=== PATIENT | male | born 1935 | race Caucasian/White ===

== ENCOUNTER 2023-09-05 23:20 | Inpatient (IN) | payer MEDICARE, SELFPAY ==
[2023-09-05] VITALS (7 sets, daily range): BP systolic 73–121; BP diastolic 34–59
--- NOTE | 2023-09-05 18:51 | ED.GENMED ---
History of Present Illness
General
Chief Complaint: Urinary Symptoms
Source: patient
Exam Limitations: none
Time Seen by Provider: 09/05/23 18:20
Travel History
Have you had any contact with someone who has COVID-19?: No
Do you have any symptoms of coronavirus? Fever > 100 degrees, chills, cough, shortness of breath, sore throat, loss of taste or smell, muscle aches, or headache?: No
History of Present Illness
History of Present Illness:
This is a 87 year old male that comes in with c/o not urinating. States that he has not urinated since yesterday. States that he called the Robot Technician and was told to come to the ER. States that he is on a fluid restriction of 48-58ml daily but he
has not gotten this today. States that he also had massive diarrhea today with chills. Denies any fever, chest pain, SOB, abd pain, nausea, vomiting, headache, dizziness, urinary burning.
Past History
Past History
ED Past Medical History: Arrthythmia (Atrial fib), CAD, Cancer (Prostate CA, Skin CA), CHF, HTN, Hypercholesterolemia, NIDDM, DC and Other (Subdural hematoma, Sleep apnea uses CPAP, Hiatal hernia, Tinnitus. back pain, )
ED Past Surgical History: Cardiac (pacemaker/defib, Stents, Ablation, ), Cholecystectomy, Orthopedic (Laminectomy, Bilateral knee replacements, Right shoulder replacement) and Other (cataracts )
Social History
Tobacco: Non-smoker
Alcohol: Occasional
Drug: None
Personal: Single
Living: alone
Employment: Retired
Family History
Family History: Other
Review of Systems
Review of Systems
All Other Systems: ROS reviewed and negative except as documented in HPI and ROS
Constitutional: Reports chills; Denies fever
EENT: Reports no symptoms
Respiratory: Reports no symptoms; Denies cough or trouble breathing
Cardiac: Reports no symptoms; Denies chest pain
ABD/GI: Reports diarrhea; Denies abdominal pain, nausea or vomiting
: Reports difficulty voiding
Musculoskeletal: Reports no symptoms
Skin: Reports no symptoms
Neurological: Reports no symptoms; Denies dizzy or headache
Psychiatric: Reports no symptoms
Phy Exam
General Physical Exam
General Presentation: no apparent distress
General age: appears stated age
General Skin: warm and dry
General Habitus: elderly
General Mental: alert
General Hydration: appears well hydrated
ENT Exam
ENT Exam: TM's normal, pharynx normal and neck supple
Eye Exam
Eye Exam: EOMI
Cardiovascular Exam
Cardiovascular Exam: regular rate/rhythm and normal peripheral pulses
Pulmonary Exam
Pulmonary Exam: lungs clear, no respiratory distress, no rales, chest non tender, no crackles, no rhonchi, no wheezing and no cough
Gastrointestinal Exam
Gastrointestinal Exam: normal bowel sounds, non tender, soft, no organomegaly, no pulsatile mass and non distended
Musculoskeletal Exam
Musculoskeletal Exam: full ROM and edema (+2 pitting edema of the lower legs)
Skin Exam
Skin Exam: normal color, warm/dry, no rash and no petechia
Psychiatric Exam
Psychiatric Exam: normal mood/affect
Course
Orders/Labs/Results
Orders:
Orders
09/05/23 18:51
0.9% Sodium Chloride 250 ml [Nss] 250 ml IV BOLUS
09/05/23 19:00
Complete Blood Count/With Diff Urgent
Comprehensive Metabolic Panel Urgent
NT-proBNP Urgent
Troponin I Urgent
09/05/23 19:27
Straight cath- Treatment ONCE
09/05/23 19:36
Urine Culture Urgent
GENO Source: U
Specimen Description:
Obtained by: Straight Cath
Date Specimen was Collected: 09/05/23
Time Specimen was Collected: 18:53
09/05/23 21:38
0.9% Sodium Chloride 250 ml [Nss] 250 ml IV BOLUS
CR Chest - 2 Views Urgent
Comment:
Reason For Exam: Elevaed Pro-BNP lower leg edema
09/05/23 22:23
Urinalysis Reflex To Culture Urgent
Date Specimen was Collected: 09/05/23
Time Specimen was Collected: 22:22
Urine Microscopic Reflex Cult Urgent
Urine Culture Urgent
GENO Source: U
Specimen Description:
Date Specimen was Collected: 09/05/23
Time Specimen was Collected: 22:22
Abnormal Lab Results
09/05/23 09/05/23
19:00 22:23
WBC 16.8 H 10^3/uL
(4.8-10.8)
RBC 4.06 L 10^6/uL
(4.70-6.10)
Hgb 12.7 L g/dL
(13.0-18.0)
Hct 36.0 L %
(39.0-52.0)
MCH 31.3 H pg
(27.0-31.0)
Abs Immat Gran (auto) 0.1 H 10^3/uL
(0-0.05)
Absolute Neuts (auto) 15.3 H 10^3/uL
(1.4-6.5)
Absolute Lymphs (auto) 0.5 L 10^3/uL
(1.2-3.4)
Absolute Monos (auto) 0.8 H 10^3/uL
(0.1-0.6)
Neutrophils % 91.4 H %
(42.2-75.2)
Lymphocytes % 3.2 L %
(20.5-51.1)
Sodium 131 L mmol/L
(135-145)
BUN 26 H mg/dl
(9-20)
Creatinine 2.3 H mg/dL
(0.7-1.3)
Glucose 193 H mg/dl
(70-99)
Total Bilirubin 1.7 H mg/dl
(0.2-1.3)
Total Protein 5.9 L g/dl
(6.3-8.2)
Albumin 3.3 L g/dl
(3.5-5.0)
Urine Ketones 1+ A
(Negative)
Ur Occult Blood Reflex 4+ A
(Negative)
Urine Nitrite (Reflex) Positive A
(Negative)
Urine Bilirubin 2+ A
(Negative)
Urine Urobilinogen 2+ A
(Neg - 1+)
Leukocyte Esterase Rfl 1+ A
(Negative)
Urine RBC 11-15 A /HPF
(0-2)
Urine Bacteria (Reflex) Many A
(Negative)
Urine Albumin (Reflex) 1+ A
(Neg - Trace)
09/05/23 19:00
09/05/23 19:00
Leukocytosis, H/H slightly low. Sodium slightly low. chronic renal insufficiency, Glucose nonfasting. Total hermilo elevated, Total protein slightly low. Albumin low. Troponin 0.024, Pro-BNP 2340
Vital Signs
Initial and Last Documented VS:
Initial Vital Signs
Temp Pulse Resp BP Pulse Ox
98.9 F 87 16 83/34 98
09/05/23 18:09 09/05/23 18:09 09/05/23 18:09 09/05/23 18:09 09/05/23 18:09
Last Documented Vital Signs
Temp Pulse Resp BP Pulse Ox
98.9 F 75 16 94/52 98
09/05/23 18:09 09/05/23 21:45 09/05/23 21:45 09/05/23 21:00 09/05/23 21:30
MDM/Problems Addressed
Differential Diagnosis Includes:
UTi, Dehydration. renal failure
MDM/Problems Addressed:
This is a 87 year old male that comes in with c/o no urine output since yesterday. States that he is on a fluid restriction and he also had diarrhea today. states that he is behind today in his intake.
Will check labs. IV fluids and get Urine
Nursing was only able to get 5ml of urine when patient was straight cathed so labs was only able to do culture. Patient was given 250ml of NSS and will give a second 250ml and have patient drink some water. Will get chest x-ray. Will get Repeat
urine and if urine shows infection will treat.
Back into see patient. Explained that he has a UTI and that he is in renal failure. Will admit and give IV antibiotics. Hospitalist notified.
Message from radiologist forward to Dr. Jj.
Chronic conditions affecting care:
CHF
Acute Exacerbation and/or Progression of Chronic Illness:
NA
*Radiology
Radiology exam reviewed: radiology read reviewed (Chest-There is a 3cm nodulr parenchymal opacity in the right upper lobe overlying the right first rib anteriorly. This lesion may be inflammatory or neoplastic and CT of the chest would be useful for
further evaluation. )
*Pulse Oximetry
Patient hypoxic: no
*EKG
Interpreted by ED Provider?: NA
Rate: EKG- N/A
*Project Designer Interpretation
Rate: Project Designer- N/A
*Critical Care Note
Total Time (30-74mins, 75-104mins- exclusive of procedures): Not Applicable
ED Attending Note
-
Portions of this chart may have been created with voice recognition software.� Occasional wrong word or��sound alike� substitutions may have occurred due to the inherent limitations of voice recognition software.
Discharge Plan
Departure
Patient Disposition: Admit
Date of Disposition: 09/05/23
Time of Disposition: 23:20
Admit to: Med/Surg
Presentation/result/management discussed w/ accepting MD/DO: Hospitalist
Condition: Good
Covid-19: Not Applicable
Discharge Problem:
Acute UTI (urinary tract infection), Acute renal failure
Prescriptions:
No Action
aspirin 81 MG tablet,delayed release (DR/EC)
81 mg PO HS
atorvastatin 80 MG tablet
80 mg PO HS
tamsulosin 0.4 MG capsule
0.4 mg PO QPM
lisinopril 2.5 MG tablet
2.5 mg PO DAILY
tadalafil [Cialis] 5 MG tablet
5 mg PO HS
amiodarone [Pacerone] 200 MG tablet
200 mg PO DAILY
cholecalciferol (vitamin D3) 25 mcg (1,000 unit) Tablet
1,000 unit PO DAILY
Eliquis 5 mg Tablet
5 mg PO BID Qty: 60 0RF
furosemide 80 MG tablet
80 mg PO DAILY Qty: 30 0RF
carvedilol 25 mg Tablet
25 mg PO BIDWMEAL
guaifenesin 100 mg/5 mL Liquid
200 mg PO Q4H PRN (Reason: cough)
mexiletine 150 mg Capsule
150 mg PO BIDWMEAL
lidocaine [Lidoderm] 5 % Adhesive Patch,Medicated
1 patch TOPICAL DAILY
oxycodone 5 mg Tablet
5 mg PO Q4H PRN (Reason: pain)
acetaminophen 325 mg Tablet
650 mg PO Q6H PRN (Reason: pain)
azelastine 137 mcg (0.1 %) Aerosol,[place]
1 spray INTRANASAL BID
Referrals:
Chris Weller DO [Family Provider] -
Interventions
Interventions:
*Risk Screen - Suicide Last Done: 09/05/23 18:09
*General Assessment Last Done: 09/05/23 18:09
*Neglect/Abuse Screening Last Done: 09/05/23 18:09
*ED COVID-19 Vaccine History Last Done: 09/05/23 18:09
ED-Male Genitourinary Assessment Last Done: 09/05/23 19:07
Discharge Date and Time
Print Language: MACEDONIAN
[2023-09-05] MEDS: NSS 250 IV ×2 (19:03→21:46)
[2023-09-05 19:06] LABS: % Basophils 0.4 % (0-2); % Immature Granulocytes 0.5 % (0-0.5); % Lymphocytes 3.2 % (20.5-51.1); % Monocytes 4.5 % (1.7-9.3); % Neutrophils 91.4 % (42.2-75.2); Absolute Basophils 0.1 10^3/uL (0-0.2); Absolute Immature Granulocytes 0.1 10^3/uL (0-0.05); Absolute Lymphocytes 0.5 10^3/uL (1.2-3.4); Absolute Monocytes 0.8 10^3/uL (0.1-0.6); Absolute Neutrophils 15.3 10^3/uL (1.4-6.5); Hemoglobin 12.7 g/dL (13.0-18.0); Mean Corp Hgb Conc. 35.3 g/dL (33.0-37.0); Mean Corpuscular Hgb 31.3 pg (27.0-31.0); Mean Corpuscular Volume 88.7 fL (80.0-94.0); Mean Platelet Volume 9.9 fL (7.4-10.4); Nucleated Red Blood Cells % 0 % (-); Platelet Count 151 10^3/uL (130-400); Red Blood Cell Count 4.06 10^6/uL (4.70-6.10); Red Cell Dist. Width 13.8 % (11.5-14.5); White Blood Cell Count 16.8 10^3/uL (4.8-10.8)
[2023-09-05 19:25] LABS: ALT (SGPT) 16 U/L (0-50); AST (SGOT) 26 U/L (17-59); Albumin 3.3 g/dl (3.5-5.0); Alkaline Phosphatase 89 U/L (38-126); Blood Urea Nitrogen 26 mg/dl (9-20); Calcium 9.7 mg/dl (8.4-10.2); Carbon Dioxide 22 mmol/L (22-30); Chloride 99 mmol/L (98-107); Glucose 193 mg/dl (70-99); Potassium 3.6 mmol/L (3.5-5.1); Sodium 131 mmol/L (135-145); Total Bilirubin 1.7 mg/dl (0.2-1.3); Total Protein 5.9 g/dl (6.3-8.2); eGFR 27.15
[2023-09-05 19:34] LABS: Troponin I 0.024 ng/ml
[2023-09-05 20:33] LABS: NT-proBNP 2340 pg/ml
[2023-09-05 22:31] LABS: Urine Albumin 1+ (Neg - Trace); Urine Bilirubin 2+ (Negative); Urine Character Slightly Cloudy (Clear); Urine Color Yellow; Urine Glucose Negative (Negative); Urine Ketone 1+ (Negative); Urine Leukocyte 1+ (Negative); Urine Nitrite Positive (Negative); Urine Occult Blood 4+ (Negative); Urine Specific Gravity 1.025 (<1.030); Urine Urobilinogen 2+ (Neg - 1+)
[2023-09-05 22:52] LABS: Urine Bacteria Many (Negative)
[2023-09-05] MEDS: ROCEPHIN 1000 MG IV (23:31)
--- NOTE | 2023-09-05 23:44 | HPS.HSE ---
Family Physician
-
Family Physician: Chris Weller
Chief Complaint
-
inability to urinate
History of Present Illness
87-year-old male past medical history of ventricular tachycardia status post ablation, persistent atrial fibrillation, coronary artery disease status post stents, HFrEF with AICD, CKD 3, hypertension, hyperlipidemia, BPH, presenting with lack of
urination. He has not urinated since yesterday. He called his funds transfer clerk and was told to come to the emergency room. He denies any history of kidney stones, or urinary tract obstruction from any cause.
He had an episode of diarrhea this morning which is since resolved. He denies any abdominal pain but his abdomen is distended and he has some mild discomfort. Denies any nausea or vomiting. Denies any fevers or chills.
He denies any chest pain or shortness of breath. He has chronic lower extremity edema which was actually improved compared to baseline before coming in and now a little worse but still comparable to baseline. He denies any weight gain or weight
loss.
He does not smoke or drink alcohol.
Medical History
Past Medical History
Past Medical History: Reports Other ( ventricular tachycardia status post ablation, persistent atrial fibrillation, coronary artery disease status post stents, HFrEF with AICD, CKD 3, hypertension, hyperlipidemia, BPH, )
Past Surgical History: Reports Other ( Cardiac (pacemaker/defib, Stents, Ablation, ), Cholecystectomy, Orthopedic (Laminectomy, Bilateral knee replacements, Right shoulder replacement) and Other (cataracts ))
Social History
Tobacco: Non-smoker
Alcohol: None
Drug: None
Family History
Family History: Not pertinent
Allergies / Home Medications
Allergies reflects when Allergies were last updated in [employer].
Home Medications with original date entered in [employer]
Allergy/Medication List:
Allergies
Allergy/AdvReac Type Severity Reaction Status Date / Time
iodine [Iodine] Allergy see comment Verified 10/24/22 13:06
Home Medications
atorvastatin 80 mg tablet 80 mg PO HS High cholesterol 04/22/14
tamsulosin 0.4 mg capsule 0.4 mg PO QPM Urinary issue 04/22/14
aspirin 81 mg tablet,delayed release 81 mg PO HS Blood clot prevention/tx 05/31/14
lisinopril 2.5 mg tablet 2.5 mg PO DAILY Blood pressure 08/31/20
tadalafil 5 mg tablet (Cialis) 5 mg PO HS Urinary issue 08/31/20
amiodarone 200 mg tablet (Pacerone) 200 mg PO DAILY Arrhythmia 11/02/20
cholecalciferol (vitamin D3) 25 mcg (1,000 unit) tablet 1,000 unit PO DAILY Supplement 03/28/22
apixaban 5 mg tablet (Eliquis) 5 mg PO BID #60 tabs 07/28/22
furosemide 80 mg tablet 80 mg PO DAILY Fluid retention/Swelling #30 tabs 07/28/22
acetaminophen 325 mg tablet 650 mg PO Q6H PRN pain 10/24/22
azelastine 137 mcg (0.1 %) nasal spray aerosol 1 spray intranasal BID 10/24/22
carvedilol 25 mg tablet 25 mg PO BIDWMEAL 10/24/22
guaifenesin 100 mg/5 mL oral liquid 200 mg PO Q4H PRN cough 10/24/22
lidocaine 5 % topical patch (Lidoderm) 1 patch topical DAILY 10/24/22
mexiletine 150 mg capsule 150 mg PO BIDWMEAL 10/24/22
oxycodone 5 mg tablet 5 mg PO Q4H PRN pain 10/24/22
Review of Systems
-
History Source: Patient
A 12 point ROS was completed and negative except as noted: Yes
Constitutional: Reports No Symptoms
EENT: Reports No Symptoms
Respiratory: Reports No Symptoms
Cardiac: Reports No Symptoms
Abdomen/GI: Reports See HPI
: Reports See HPI
Musculoskeletal: Reports No Symptoms
Skin: Reports No Symptoms
Neurological: Reports No Symptoms
Endocrine: Reports No Symptoms
Hematologic/Lymphatic: Reports No Symptoms
Psych: Reports No Symptoms
Physical Exam
Vital Signs
Vital Signs
Temp Pulse Resp BP Pulse Ox
98.9 F 75 21 104/55 95
09/05/23 18:09 09/05/23 23:34 09/05/23 23:34 09/05/23 23:34 09/05/23 23:15
Physical Exam
General: Well Developed, Well Nourished and No Apparent Distress
HEENT: NormoCephalic, Moist mucous membranes and Atraumatic
Respiratory: Clear
Cardiac: S1/S2 and Regular Rhythm; No Murmur or Rub
GI: Soft, Non Tender, Non Distended and Normal Bowel Sounds; No Organomegaly
Rectal: Deferred by Provider
Musculoskeletal: No Clubbing, No Cyanosis and No Edema
Skin: No Rash
Neuro: Nonfocal/grossly intact
Laboratory Results
-
09/05/23 19:00
09/05/23 19:00
Laboratory Results
Total Bilirubin 1.7 mg/dl (0.2-1.3) H 09/05/23 19:00
AST 26 U/L (17-59) 09/05/23 19:00
ALT 16 U/L (0-50) 09/05/23 19:00
Alkaline Phosphatase 89 U/L (38-126) 09/05/23 19:00
Troponin I 0.024 ng/ml 09/05/23 19:00
Data Reviewed
-
Lab Data: Labs Reviewed by me
Old Records: Reviewed
Impression/Plan
-
IMPRESSION:
PLAN:
# Acute kidney injury on CKD 3 with anuria concerning for obstructive uropathy
#Hx of BPH
-Bladder scan showed 40 cc of urine
-Check I's and O's
-Check CT abdomen pelvis to rule out obstructive process given urinary tract infection/microscopic hematuria
-IV fluids although cautious given history of heart failure
-Hold Lasix
-Hold lisinopril
-Place Becker
-Continue tadalafil, tamsulosin
# Urinary tract infection
-Leukocytosis
-Urinalysis shows slightly cloudy urine, +1 leukocyte esterase, 6-10 WBC and microscopic hematuria
-Check urine culture
-Ceftriaxone
# Inflammatory/neoplastic nodular parenchymal lung opacity
-As seen on chest x-ray, 3 cm in size
-Can check CT chest while checking CT abdomen pelvis
# Diarrhea episode
-Now resolved
History of ventricular tachycardia status post ablation with AICD
-Continue amiodarone
-Continue mexiletine
Persistent atrial fibrillation
-Hold Eliquis in case urologic procedure necessary
Coronary artery disease status post stents
-Continue aspirin
Chronic HFrEF/ischemic cardiomyopathy
-not currently in heart failure
-Cardiac BNP of 2300
-Continue Coreg
Essential hypertension
Hyperlipidemia
-Continue statin
Full code
DVT prophylaxis�SCDs
Cardiac diet
[2023-09-06] VITALS (7 sets, daily range): BP systolic 99–156; BP diastolic 54–80
--- NOTE | 2023-09-06 02:39 | PTCARENOTE ---
Patient admitted from ED. Patient is AAO x3, on RA, in no acute distress. Tele monitor applied. Patient oriented to room and call williamson is within reach.
--- NOTE | 2023-09-06 02:41 | PTCARENOTE ---
Patient has order for guzman catheter insertion for strict I/O's and MILAGRO. Patient was bladder scanned in ED for 50 mL. Patient voided 50 mL upon arrival to unit. Patient is continent. Patient is refusing guzman catheter and would prefer bladder
scan/straight cath protocol instead. Reached out to provider. Plan is to bladder scan in morning and straight cath if needed. Patient will void using urinal. Confirmed with provider. Will continue to monitor.
[2023-09-06] MEDS: NSS 1000 IV ×2 (03:28→16:28)
[2023-09-06] MEDS: MEXITIL 150 MG PO ×3 (03:57→21:03)
[2023-09-06] MEDS: COREG 6.25 MG PO (03:57)
[2023-09-06 08:29] LABS: % Basophils 0.5 % (0-2); % Eosinophils 0.6 % (0-6); % Immature Granulocytes 0.5 % (0-0.5); % Lymphocytes 11.7 % (20.5-51.1); % Monocytes 8.9 % (1.7-9.3); % Neutrophils 77.8 % (42.2-75.2); Absolute Basophils 0.1 10^3/uL (0-0.2); Absolute Eosinophils 0.1 10^3/uL (0-0.7); Absolute Immature Granulocytes 0.1 10^3/uL (0-0.05); Absolute Lymphocytes 1.3 10^3/uL (1.2-3.4); Absolute Neutrophils 8.4 10^3/uL (1.4-6.5); Hematocrit 33.2 % (39.0-52.0); Hemoglobin 11.1 g/dL (13.0-18.0); Mean Corp Hgb Conc. 33.4 g/dL (33.0-37.0); Mean Corpuscular Hgb 30.7 pg (27.0-31.0); Mean Corpuscular Volume 91.7 fL (80.0-94.0); Mean Platelet Volume 10.4 fL (7.4-10.4); Nucleated Red Blood Cells % 0 % (-); Platelet Count 132 10^3/uL (130-400); Red Blood Cell Count 3.62 10^6/uL (4.70-6.10); Red Cell Dist. Width 13.8 % (11.5-14.5); White Blood Cell Count 10.8 10^3/uL (4.8-10.8)
[2023-09-06 08:54] LABS: ALT (SGPT) 12 U/L (0-50); AST (SGOT) 31 U/L (17-59); Alkaline Phosphatase 79 U/L (38-126); Blood Urea Nitrogen 30 mg/dl (9-20); Calcium 9.1 mg/dl (8.4-10.2); Carbon Dioxide 24 mmol/L (22-30); Chloride 103 mmol/L (98-107); Glucose 132 mg/dl (70-99); Potassium 3.3 mmol/L (3.5-5.1); Sodium 131 mmol/L (135-145); Total Bilirubin 1.5 mg/dl (0.2-1.3); Total Protein 5.5 g/dl (6.3-8.2)
[2023-09-06] MEDS: PACERONE 200 MG PO (09:05)
[2023-09-06] MEDS: VITAMIN D3 (cholecalciferol) 25 MCG PO (09:05)
[2023-09-06] MEDS: KCL 40 MEQ PO (12:39)
--- NOTE | 2023-09-06 13:02 | W.PN.HOSP.TC ---
Today's Communication/Plan
-
renew IVF
consider renal consult
cont rocephin for now--culture neg
Assessment / Plan
Assessment / Plan
pt is an 87 year old male
Acute kidney injury on CKD 3 with anuria concerning for obstructive uropathy with BPH--pt refused guzman and does not believe he is retaining--cont IVF--holding lasix/lisinopril--CT scan without hydro---Continue tadalafil, tamsulosin--may need renal
consult
Urinary tract infection--UA positive but urine culture negative--Ceftriaxone for now
Inflammatory/neoplastic nodular parenchymal lung opacity---As seen on chest x-ray, 3 cm in size--unchanged since 01/25/22
Diarrhea episode-Now resolved
History of ventricular tachycardia status post ablation with AICD--Continue amiodarone--Continue mexiletine
Persistent atrial fibrillation--Hold Eliquis in case urologic procedure necessary
Coronary artery disease status post stents--Continue aspirin
Chronic HFrEF/ischemic cardiomyopathy--not currently in heart failure--Cardiac BNP of 2300--Continue Coreg
Essential hypertension
Hyperlipidemia--Continue statin
Full code
DVT prophylaxis�SCDs
Anticipated Discharge: > 48 hours
Subjective/Interval History
-
Date of Service: September 06, 2023
pt does not believe he is retaining
Objective Data
-
Labs:
Laboratory Results
09/06/23
07:10
WBC 10.8
Hgb 11.1 L
Hct 33.2 L
Plt Count 132
Sodium 131 L
Potassium 3.3 L
Chloride 103
Carbon Dioxide 24
BUN 30 H
Creatinine 2.0 H
Glucose 132 H
Calcium 9.1
Total Bilirubin 1.5 H
AST 31
ALT 12
Alkaline Phosphatase 79
Vital Signs:
max temp for 24 hours
09/05/23
18:09
Temp 98.9 F
Vital Signs
Temp Pulse Resp BP Pulse Ox
98.8 F 76 17 115/57 95
09/06/23 11:43 09/06/23 11:43 09/06/23 11:43 09/06/23 11:43 09/06/23 11:43
I&O
09/05/23 09/06/23 09/07/23
06:59 06:59 06:59
Intake Total 280 / 760 480 / 480
Output Total 325 / 325
Balance -45 / 435 480 / 480
Review of Systems
-
All other systems: Reviewed and negative
Physical Exam
-
General: Well Developed, Well Nourished and No Apparent Distress
HEENT: Normocephalic and Atraumatic
Respiratory: Clear to Auscultation; Negative Wheezes or Rhonchi
Cardiac: Regular Rhythm and S1/S2; Negative Murmur
GI: Soft, Nontender, Nondistended and Normal Bowel Sounds
Musculoskeletal: No Clubbing, No Cyanosis and No Edema
Neuro: Awake
--- NOTE | 2023-09-06 13:07 | CM ---
Patient seen at bedside with physician. Patient stated that he lives alone in an apartment 15 steps to enter. Patient states that Dr. Ivy, [facility]. and patient plan is home with no needs. Patient does have a CPAP and a cane at home.
Patient stated that he indicated that he would have family to transport home. CM will continue to follow for discharge planning needs.
Plan; home with no needs vs home with VN
[2023-09-06] MEDS: COREG 12.5 MG PO (16:29)
[2023-09-06] MEDS: FLOMAX 0.400000000000000022 MG PO (17:11)
[2023-09-06] MEDS: ASPIR LOW (ENTERIC COATED) 81 MG PO (21:04)
[2023-09-06] MEDS: LIPITOR 80 MG PO (21:04)
[2023-09-06] MEDS: ROCEPHIN 1000 MG IV (22:12)
[2023-09-07 03:40] VITALS: BP 152/81
[2023-09-07] MEDS: NSS 1000 IV (03:44)
[2023-09-07 07:52] VITALS: BP 148/82
[2023-09-07] MEDS: COREG 12.5 MG PO (08:00)
[2023-09-07] MEDS: MEXITIL 150 MG PO (08:00)
[2023-09-07] MEDS: PACERONE 200 MG PO (08:00)
[2023-09-07] MEDS: VITAMIN D3 (cholecalciferol) 25 MCG PO (08:00)
[2023-09-07 08:47] LABS: Hematocrit 35.7 % (39.0-52.0); Hemoglobin 11.9 g/dL (13.0-18.0); Mean Corp Hgb Conc. 33.3 g/dL (33.0-37.0); Mean Corpuscular Hgb 30.7 pg (27.0-31.0); Mean Corpuscular Volume 92.2 fL (80.0-94.0); Mean Platelet Volume 10.2 fL (7.4-10.4); Platelet Count 123 10^3/uL (130-400); Red Blood Cell Count 3.87 10^6/uL (4.70-6.10); Red Cell Dist. Width 13.7 % (11.5-14.5); White Blood Cell Count 7.2 10^3/uL (4.8-10.8)
[2023-09-07 09:03] LABS: Blood Urea Nitrogen 20 mg/dl (9-20); Calcium 9.5 mg/dl (8.4-10.2); Carbon Dioxide 24 mmol/L (22-30); Chloride 107 mmol/L (98-107); Glucose 128 mg/dl (70-99); Sodium 134 mmol/L (135-145); eGFR > 60.00
[2023-09-07 11:35] VITALS: BP 140/88
--- NOTE | 2023-09-07 13:42 | W.PN.HOSP.TC ---
Today's Communication/Plan
-
d/c
Assessment / Plan
Assessment / Plan
pt is an 87 year old male
Acute kidney injury on CKD 3 with anuria concerning for obstructive uropathy with BPH--pt refused guzman and does not believe he is retaining--stop IVF--restart lasix/lisinopril--CT scan without hydro---Continue tadalafil, tamsulosin--resolved
Urinary tract infection--UA positive but urine culture negative--Ceftriaxone to keflex as outpt
Inflammatory/neoplastic nodular parenchymal lung opacity---As seen on chest x-ray, 3 cm in size--unchanged since 01/25/22
Diarrhea episode-Now resolved
History of ventricular tachycardia status post ablation with AICD--Continue amiodarone--Continue mexiletine
Persistent atrial fibrillation--Hold Eliquis in case urologic procedure necessary
Coronary artery disease status post stents--Continue aspirin
Chronic HFrEF/ischemic cardiomyopathy--not currently in heart failure--Cardiac BNP of 2300--Continue Coreg
Essential hypertension
Hyperlipidemia--Continue statin
Full code
DVT prophylaxis�SCDs
Anticipated Discharge: Today
Subjective/Interval History
-
Date of Service: September 07, 2023
pt ready to go home
Objective Data
-
Labs:
Laboratory Results
09/07/23
08:15
WBC 7.2
Hgb 11.9 L
Hct 35.7 L
Plt Count 123 L
Sodium 134 L
Potassium 4.0
Chloride 107
Carbon Dioxide 24
BUN 20
Creatinine 1.1
Glucose 128 H
Calcium 9.5
Vital Signs:
max temp for 24 hours
09/06/23
23:30
Temp 98.9 F
Vital Signs
Temp Pulse Resp BP Pulse Ox
98.6 F 81 20 140/88 95
09/07/23 11:35 09/07/23 11:35 09/07/23 11:35 09/07/23 11:35 09/07/23 11:35
I&O
09/06/23 09/07/23 09/08/23
06:59 06:59 06:59
Intake Total 280 / 760 2925 / 2925
Output Total 325 / 325 1835 / 1835
Balance -45 / 435 1090 / 1090
Review of Systems
-
All other systems: Reviewed and negative
Physical Exam
-
General: Well Developed, Well Nourished and No Apparent Distress
HEENT: Normocephalic and Atraumatic; Negative Oxygen
Respiratory: Clear to Auscultation; Negative Wheezes or Rhonchi
Cardiac: Regular Rhythm and S1/S2; Negative Murmur
GI: Soft, Nontender, Nondistended and Normal Bowel Sounds
Musculoskeletal: No Clubbing, No Cyanosis and No Edema
Neuro: Awake and Alert
--- NOTE | 2023-09-07 14:02 | CM ---
Chart reviewed plan is home no needs.
Plan; Home no needs
--- NOTE | 2023-09-07 14:14 | W.DCSUMMARY ---
Discharge Summary
Discharge Data
Date of Admission: 09/05/23
Date of Discharge: 09/07/23
-
Pending Results: No
Hospital Course
Primary care physician : Chris Weller
Principal Discharge diagnosis : Acute kidney injury on chronic kidney disease stage III, presumed urinary tract infection
Chronic Discharge diagnosis : Inflammatory/neoplastic nodular parenchymal lung opacity unchanged since January 25, 2022, history of ventricular tachycardia status post ablation with AICD placement, persistent atrial fibrillation, coronary artery
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
Hospital Course : Patient was an 87-year-old male with a history listed above who presented with a lack of urination. Patient stated that he has not urinated since the day prior to admission. 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
the emergency room. He denied any history of kidney stones, urinary tract obstruction from any cause. He also had an episode of diarrhea which is since resolved. He denied any fevers or chills. He denied any chest pain or shortness of breath.
Patient was found to have acute kidney injury and was admitted.
Problem #1: Acute kidney injury on chronic kidney disease stage III. Patient was given gentle IV fluids. There was concern for obstructive uropathy given a history of benign prostatic hyperplasia. Patient did refuse a Becker catheter and did not
believe that he was retaining urine. Bladder scan confirms that he does not have any retention postvoid. Lasix and lisinopril were held. CAT scan of the abdomen pelvis was done which did not show any hydronephrosis. With gentle IV hydration,
patient's creatinine improved from 2.3 down to 1.1 which is his baseline.
Problem #2: Presumed urinary tract infection. Patient was started on Rocephin empirically for a positive urinalysis. Urine culture however showed no growth and was negative. Rocephin has been changed to Keflex as an outpatient to complete a short
course.
Problem #3: All other medical issues. These include Inflammatory/neoplastic nodular parenchymal lung opacity unchanged since January 25, 2022, history of ventricular tachycardia status post ablation with AICD placement, persistent atrial
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 These medical issues were
stable during his hospitalization. Medications were continued as able.
Patient is stable for discharge home at this time. If there are any questions regarding this dictation or his hospital stay, please not hesitate to call. Our office number is [phone].
Important imaging findings :
CT CHEST/ABDOMEN/PELVIS IMPRESSION:
1. Small lung nodules within the left lower lobe, unchanged compared with a CT dated 01/25/2022 and likely benign. No concerning pulmonary nodules are appreciated.
2. Severe coronary arterial calcifications. Please correlate with symptoms of and risk factors for coronary artery disease, with further workup as clinically appropriate.
3. 3 cm right thyroid lobe nodule, unchanged compared to Prior CT.
4. Nodular contour of the liver, suggestive of cirrhosis.
5. Right adrenal adenoma, unchanged.
6. Small left-sided nephrolith without hydronephrosis.
7. Mild prostate enlargement.
Discharge Plan
-
Patient Disposition: Home (Routine Discharge)
Discharge Diagnosis/Procedures: Acute kidney injury on chronic kidney disease stage III, presumed urinary tract infection, inflammatory/neoplastic nodular parenchymal lung opacity, history of ventricular tachycardia status post ablation and AICD,
persistent atrial fibrillation, coronary artery disease status post stents, chronic systolic congestive heart failure with reduced ejection fraction at without acute exacerbation/ischemic cardiomyopathy, essential hypertension, hyperlipidemia
Condition: Good
Diet: 2 Gram Sodium
Activity: As tolerated
Driving Restrictions: As prior to admission
Bathing Restrictions: None
Referrals:
Chris Weller, [Family Provider] - in less than 1 week
Additional Discharge Medication Instructions: Your carvedilol dose has been changed to 12.5 mg twice daily
Prescriptions:
New
carvedilol 12.5 mg Tablet
12.5 mg PO BID AT 0800,1700 Qty: 60 0RF
Continued
aspirin 81 MG tablet,delayed release (DR/EC)
81 mg PO HS
atorvastatin 80 MG tablet
80 mg PO HS
tamsulosin 0.4 MG capsule
0.4 mg PO QPM
lisinopril 2.5 MG tablet
2.5 mg PO DAILY
tadalafil [Cialis] 5 MG tablet
5 mg PO HS
amiodarone [Pacerone] 200 MG tablet
200 mg PO DAILY
cholecalciferol (vitamin D3) 25 mcg (1,000 unit) Tablet
1,000 unit PO DAILY
furosemide 80 MG tablet
80 mg PO DAILY Qty: 30 0RF
mexiletine 150 mg Capsule
150 mg PO DAILY
sennosides [senna] 8.6 mg Tablet
17.2 mg PO HS
sennosides-docusate sodium [Senna-S] 8.6-50 mg Tablet
3 tab PO DAILY
Eliquis 5 mg tablet
5 mg PO BID
Discontinued
carvedilol 25 mg Tablet
6.25 mg PO BID
Discharge Orders:
Discharge Patient (As Directed); Ordered 09/07/23
Ordered By: Nupur Combs
Discharge Date and Time
Print Language: SERBIAN
== END 2023-09-07 14:57 | disposition home or self-care (01) | DRG 683 ==
LOC: 4 WEST ACU 23:20
PROVIDERS: Clinical Nurse Specialist Family Health; ADMITTING PHYSICIAN Hospitalist; ATTENDING PHYSICIAN Internal Medicine; EMERGENCY PHYSICIAN Emergency Medicine; FAMILY PHYSICIAN Internal Medicine
DX: N17.9 Acute kidney failure, unspecified (principal); I13.0 Hypertensive heart and chronic kidney disease with heart failure and stage 1 through stage 4 chronic kidney disease, or unspecified chronic kidney disease; I50.22 Chronic systolic (congestive) heart failure; I48.19 Other persistent atrial fibrillation; N39.0 Urinary tract infection, site not specified; N13.8 Other obstructive and reflux uropathy; N18.30 Chronic kidney disease, stage 3 unspecified; E11.22 Type 2 diabetes mellitus with diabetic chronic kidney disease; E78.00 Pure hypercholesterolemia, unspecified; G47.30 Sleep apnea, unspecified; I25.10 Atherosclerotic heart disease of native coronary artery without angina pectoris; K44.9 Diaphragmatic hernia without obstruction or gangrene; R19.7 Diarrhea, unspecified; H93.19 Tinnitus, unspecified ear; E11.36 Type 2 diabetes mellitus with diabetic cataract; R34 Anuria and oliguria; N40.1 Benign prostatic hyperplasia with lower urinary tract symptoms; I25.5 Ischemic cardiomyopathy; I25.2 Old myocardial infarction; Z85.46 Personal history of malignant neoplasm of prostate; Z85.828 Personal history of other malignant neoplasm of skin; Z79.82 Long term (current) use of aspirin; Z79.01 Long term (current) use of anticoagulants; Z79.891 Long term (current) use of opiate analgesic; Z91.041 Radiographic dye allergy status; Z95.810 Presence of automatic (implantable) cardiac defibrillator; Z95.5 Presence of coronary angioplasty implant and graft
CPT/HCPCS: 51701; 51798; 71046; 71250; 74176; 80048; 80053; 81003; 81015; 83735; 83880; 84484; 85025; 85027; 87086; 96361; 96374; 97162; 99285

== ENCOUNTER → 2023-09-30 15:42 | Outpatient (REF) | payer MEDICARE, SELFPAY | LOC: RAD 15:42 | PROVIDERS: ATTENDING PHYSICIAN Internal Medicine | DX: E04.1 Nontoxic single thyroid nodule (principal) | CPT/HCPCS: 76536 ==

== ENCOUNTER 2023-11-14 13:35 | Emergency (ER) | payer MEDICARE, SELFPAY ==
[2023-11-14 14:01] VITALS: BP 107/55
--- NOTE | 2023-11-14 14:48 | ED.GENMED ---
History of Present Illness
General
Chief Complaint: Fall
Time Seen by Provider: 11/14/23 14:33
Travel History
Have you had any contact with someone who has COVID-19?: No
Do you have any symptoms of coronavirus? Fever > 100 degrees, chills, cough, shortness of breath, sore throat, loss of taste or smell, muscle aches, or headache?: No
History of Present Illness
History of Present Illness:
88-year-old male presents the emergency department via EMS for evaluation of general weakness resulting in a minor fall. He states his 'sacroiliac joint gave out'. He sees a chiropractor routinely because the 'SI joint goes out' but was not able
to make it today due to pain. Apparently he did not turn the air conditioner on his apartment and when EMS arrived it was noted that the apartment was roughly 90 degrees and he arrives diaphoretic and fatigued. He reports no p.o. intake today.
Denies any lower extremity numbness. He is requesting that I 'put the SI joint back and and I will get up and walk out of here'.
Past History
Past History
ED Past Medical History: Arrthythmia (Atrial fib), CAD, Cancer (Prostate CA, Skin CA), CHF, HTN, Hypercholesterolemia, NIDDM, SD and Other (Subdural hematoma, Sleep apnea uses CPAP, Hiatal hernia, Tinnitus. back pain, )
ED Past Surgical History: Cardiac (pacemaker/defib, Stents, Ablation, ), Cholecystectomy, Orthopedic (Laminectomy, Bilateral knee replacements, Right shoulder replacement) and Other (cataracts )
Social History
Tobacco: Non-smoker
Alcohol: Occasional
Drug: None
Personal: Single
Living: alone
Employment: Retired
Family History
Family History: Other
Review of Systems
Review of Systems
Allergies reviewed?: Yes
All Other Systems: ROS reviewed and negative except as documented in HPI and ROS
Phy Exam
Physical Exam
Physical Exam:
GEN: Well appearing, NAD, WDWN
HEENT: Oral mucosa moist, no scleral icterus
Cardiac: Regular rate
Lung: No respiratory distress, no tachypnea
MSK: No gross deformity or injuries. Tenderness hip and pelvis as well as the low back at the SI joint, normal strength in bilateral lower extremity
Skin: Good color, no pallor or jaundice, no rashes
Neuro: AO x3, moves all extremities freely
Psych: Calm, cooperative
Course
Orders/Labs/Results
Orders:
Orders
11/14/23 14:47
0.9% Sodium Chloride 1000 ml [Nss] 1,000 ml IV BOLUS
11/14/23 14:59
CPK [Creatine Phosphokinase] Urgent
Complete Blood Count/With Diff Urgent
Comprehensive Metabolic Panel Urgent
11/14/23 16:08
CR Hip - RT w/wo Pel 2-3 Vw* Urgent
Comment:
Reason For Exam: fall, pain
Include a pelvis x-ray?: Yes
11/14/23 17:55
Ketorolac [Toradol] 15 mg IV NOW STA
Morphine Sulfate 2 mg IV NOW STA
11/14/23 18:35
Oxycodone [Roxicodone] 5 mg PO NOW STA
Abnormal Lab Results
11/14/23
14:59
WBC 14.7 H 10^3/uL
(4.8-10.8)
RBC 3.87 L 10^6/uL
(4.70-6.10)
Hgb 12.0 L g/dL
(13.0-18.0)
Hct 35.8 L %
(39.0-52.0)
Abs Immat Gran (auto) 0.2 H 10^3/uL
(0-0.05)
Absolute Neuts (auto) 13.9 H 10^3/uL
(1.4-6.5)
Absolute Lymphs (auto) 0.3 L 10^3/uL
(1.2-3.4)
Immature Gran % 1.1 H %
(0-0.5)
Neutrophils % 94.7 H %
(42.2-75.2)
Lymphocytes % 1.8 L %
(20.5-51.1)
BUN 25 H mg/dl
(9-20)
Creatinine 1.5 H mg/dL
(0.7-1.3)
Glucose 154 H mg/dl
(70-99)
Total Bilirubin 1.6 H mg/dl
(0.2-1.3)
Alkaline Phosphatase 139 H U/L
(38-126)
Creatine Kinase 331 H U/L
(55-170)
11/14/23 14:59
11/14/23 14:59
Vital Signs
Initial and Last Documented VS:
Initial Vital Signs
Temp Pulse Resp BP Pulse Ox
99.8 F 75 18 107/55 95
11/14/23 14:11/14/23 14:01 11/14/23 14:01 11/14/23 14:01 11/14/23 14:01
Last Documented Vital Signs
Temp Pulse Resp BP Pulse Ox
99.8 F 75 18 107/55 95
11/14/23 14:01 11/14/23 14:01 11/14/23 14:01 11/14/23 14:01 11/14/23 14:01
MDM/Problems Addressed
MDM/Problems Addressed:
Patient was treated with IV fluids due to the excessive heat exposure from his non air conditioned apartment, with improvement and diaphoresis. His labs are reflective of dehydration. He was treated with pain medication and was able to ambulate
with walker assistance. He plans to follow-up with his chiropractor tomorrow. X-rays of the hip and pelvis show no acute bony pathology
*Critical Care Note
Total Time (30-74mins, 75-104mins- exclusive of procedures): Not Applicable
ED Attending Note
-
Portions of this chart may have been created with voice recognition software.� Occasional wrong word or��sound alike� substitutions may have occurred due to the inherent limitations of voice recognition software.
Discharge Plan
Departure
Patient Disposition: Home (Routine Discharge)
Date of Disposition: 11/14/23
Time of Disposition: 18:34
Patient with high blood pressure during this ER visit?: No
Discharge Problem:
Pain of right sacroiliac joint
Instructions: Low Back Pain ED
Prescriptions:
New
oxycodone 5 mg tablet
5 mg PO Q8H PRN (Reason: Pain) Qty: 6 0RF
No Action
aspirin 81 MG tablet,delayed release (DR/EC)
81 mg PO HS
atorvastatin 80 MG tablet
80 mg PO HS
tamsulosin 0.4 MG capsule
0.4 mg PO QPM
lisinopril 2.5 MG tablet
2.5 mg PO DAILY
tadalafil [Cialis] 5 MG tablet
5 mg PO HS
amiodarone [Pacerone] 200 MG tablet
200 mg PO DAILY
cholecalciferol (vitamin D3) 25 mcg (1,000 unit) Tablet
1,000 unit PO DAILY
furosemide 80 MG tablet
80 mg PO DAILY Qty: 30 0RF
mexiletine 150 mg Capsule
150 mg PO DAILY
sennosides [senna] 8.6 mg Tablet
17.2 mg PO HS
sennosides-docusate sodium [Senna-S] 8.6-50 mg Tablet
3 tab PO DAILY
Eliquis 5 mg tablet
5 mg PO BID
carvedilol 12.5 mg Tablet
12.5 mg PO BID AT 0800,1700 Qty: 60 0RF
Referrals:
Brislin,Chris M., DO [Family Provider] -
Activity Restrictions/Additional Instructions:
See your chiropractor tomorrow
Interventions
Interventions:
*Risk Screen - Suicide Last Done: 11/14/23 14:01
*General Assessment Last Done: 11/14/23 14:01
*Neglect/Abuse Screening Last Done: 11/14/23 14:01
ED- Fall Risk Assessment Last Done: 11/14/23 18:38
*ED COVID-19 Vaccine History Last Done: 11/14/23 18:38
*Nursing Disposition Last Done: 11/14/23 18:38
ED-Musculoskeletal Assessment Last Done: 11/14/23 16:16
ED- Neurological Assessment Last Done: 11/14/23 16:16
ED-Skin Assessment Last Done: 11/14/23 16:16
Discharge Date and Time
Discharge Date/Time: 11/14/23 18:39
Print Language: CONGOLESE
[2023-11-14] MEDS: NSS 1000 IV (15:03)
[2023-11-14 15:08] LABS: % Basophils 0.3 % (0-2); % Eosinophils 0.3 % (0-6); % Immature Granulocytes 1.1 % (0-0.5); % Lymphocytes 1.8 % (20.5-51.1); % Monocytes 1.8 % (1.7-9.3); % Neutrophils 94.7 % (42.2-75.2); Absolute Basophils 0.1 10^3/uL (0-0.2); Absolute Eosinophils 0.1 10^3/uL (0-0.7); Absolute Immature Granulocytes 0.2 10^3/uL (0-0.05); Absolute Lymphocytes 0.3 10^3/uL (1.2-3.4); Absolute Monocytes 0.3 10^3/uL (0.1-0.6); Absolute Neutrophils 13.9 10^3/uL (1.4-6.5); Hematocrit 35.8 % (39.0-52.0); Mean Corp Hgb Conc. 33.5 g/dL (33.0-37.0); Mean Corpuscular Volume 92.5 fL (80.0-94.0); Mean Platelet Volume 9.8 fL (7.4-10.4); Nucleated Red Blood Cells % 0 % (-); Platelet Count 171 10^3/uL (130-400); Red Blood Cell Count 3.87 10^6/uL (4.70-6.10); Red Cell Dist. Width 14.1 % (11.5-14.5); White Blood Cell Count 14.7 10^3/uL (4.8-10.8)
[2023-11-14 15:32] LABS: ALT (SGPT) 26 U/L (0-50); AST (SGOT) 46 U/L (17-59); Albumin 3.6 g/dl (3.5-5.0); Alkaline Phosphatase 139 U/L (38-126); Blood Urea Nitrogen 25 mg/dl (9-20); Calcium 9.8 mg/dl (8.4-10.2); Carbon Dioxide 24 mmol/L (22-30); Chloride 105 mmol/L (98-107); Creatine Phosphokinase 331 U/L (55-170); Glucose 154 mg/dl (70-99); Potassium 3.9 mmol/L (3.5-5.1); Sodium 139 mmol/L (135-145); Total Bilirubin 1.6 mg/dl (0.2-1.3); Total Protein 6.4 g/dl (6.3-8.2); eGFR 45.06
[2023-11-14] MEDS: TORADOL 15 MG IV (17:59)
[2023-11-14] MEDS: MORPHINE SULFATE 2 MG IV (17:59)
[2023-11-14] MEDS: ROXICODONE 5 MG PO (18:38)
== END 2023-11-14 18:39 | disposition home or self-care (01) ==
LOC: EMR 13:35
PROVIDERS: Physician Assistant; EMERGENCY PHYSICIAN Student in an Organized Health Care Education/Training Program; FAMILY PHYSICIAN Internal Medicine
DX: M53.3 Sacrococcygeal disorders, not elsewhere classified (principal); E86.0 Dehydration; I48.91 Unspecified atrial fibrillation; I25.10 Atherosclerotic heart disease of native coronary artery without angina pectoris; I11.0 Hypertensive heart disease with heart failure; I50.9 Heart failure, unspecified; E78.00 Pure hypercholesterolemia, unspecified; E11.36 Type 2 diabetes mellitus with diabetic cataract; G47.30 Sleep apnea, unspecified; Z85.46 Personal history of malignant neoplasm of prostate; Z90.49 Acquired absence of other specified parts of digestive tract; Z95.0 Presence of cardiac pacemaker; Z95.5 Presence of coronary angioplasty implant and graft; Z96.611 Presence of right artificial shoulder joint; Z96.653 Presence of artificial knee joint, bilateral
CPT/HCPCS: 99283; 96374; 96375; 96361; 73502; 80053; 82550; 85025